=== PATIENT | female | born 1960 | race Caucasian/White ===

== ENCOUNTER → 2020-12-13 | Outpatient (REF) | LOC: M LAB 14:57 | PROVIDERS: ATTEND Nurse Practitioner Adult Health | DX: Z00.00 Encounter for general adult medical examination without abnormal findings (principal) ==

== ENCOUNTER → 2021-01-23 | Outpatient (REF) | LOC: M EMP 11:16 | PROVIDERS: ATTEND Family Medicine | DX: Z20.822 Contact with and (suspected) exposure to COVID-19 (principal) ==

== ENCOUNTER → 2021-01-30 | Outpatient (REF) | LOC: M EMP 09:25 | PROVIDERS: ATTEND Family Medicine | DX: Z20.822 Contact with and (suspected) exposure to COVID-19 (principal) ==

== ENCOUNTER 2021-01-31 15:10 | Outpatient (CLI) | payer BC, SELFPAY ==
[~2021-01-31] VITALS: Ht 174.6 cm; Wt 120.9 kg
[~2021-01-31 15:10] MED LIST: ALBUTEROL 90 MCG/ACT 8GM HFA INHALER INH PRN; ALBUTEROL SULFATE 2.5 MG/0.5 ML INH NEB SOLN INH PRN; EPINEPHrine INJ 1 MG/ML 1ML AMP IM PRN; NS 1,000 ML IV SCH; diphenhydrAMINE 50MG/ML VIAL (J1200) IV PRN; methylPREDNISolone 125MG 2ML VIAL IV PRN
--- NOTE | 2021-01-31 15:40 | HPE ---
HISTORY AND PHYSICAL DATE OF ADMISSION: 01/31/2021 Annette is an employee at [employer] and tested positive for COVID. Test was done on January 30, reported result positive January 31. Contacted patient. She has multiple risk factors for COVID complications, including chronic lung disease with six spontaneous pneumothoraces, followed by legal billing coordinator at [facility]. She has a body mass index (BMI) greater than 40 and hypertension. This was all discussed with her. We discussed monoclonal antibody that is emergency use authorization and has been shown to reduce risk of progression to clinical COVID and makes clinical COVID less severe. She agrees to monoclonal antibody administration. I arranged this through the nursing dock supervisor and placed orders for monoclonal antibody therapy per protocol.
[2021-01-31 15:56] VITALS: BP 114/72
[2021-01-31] MEDS ORDERED: diphenhydrAMINE 25MG CAP PO ONE (16:15)
[2021-01-31] MEDS ORDERED: ACETAMINOPHEN TAB 650MG DOSE (2X325MG) PO ONE (16:15)
[2021-01-31] MEDS ORDERED: methylPREDNISolone 40MG 1ML VIAL IV ONE (16:15)
[2021-01-31 18:00] VITALS: BP 111/63
[2021-01-31] MEDS ORDERED: CASIRIVIMAB/IMDEVIMAB 1,200 MG in NS 250 ML IV ONE (18:00)
[2021-01-31 19:12] VITALS: BP 130/60
[2021-01-31 20:18] VITALS: BP 131/60
== END 2021-01-31 20:40 | disposition home health service (06) ==
LOC: M OPCLI4 15:10 → M 4MAIN 15:15 → M OPCLI4 20:40
PROVIDERS: ATTEND Family Medicine
DX: U07.1 COVID-19 (principal); Z88.1 Allergy status to other antibiotic agents; Z88.2 Allergy status to sulfonamides
CPT/HCPCS: 96375; J2920; M0243

== ENCOUNTER → 2021-08-31 | Outpatient (CLI) | payer BC | LOC: M WUC 12:12 | DX: R91.8 Other nonspecific abnormal finding of lung field (principal); R07.9 Chest pain, unspecified ==

== ENCOUNTER → 2021-10-09 | Outpatient (REF) | LOC: M EMP 08:34 | PROVIDERS: ATTEND Family Medicine | DX: Z20.822 Contact with and (suspected) exposure to COVID-19 (principal) ==

== ENCOUNTER → 2021-12-17 | Outpatient (REF) | LOC: M LABSMTC 09:31 | PROVIDERS: ATTEND Family Medicine | DX: Z20.822 Contact with and (suspected) exposure to COVID-19 (principal); Z11.52 Encounter for screening for COVID-19 ==